=== PATIENT | male | born 1945 | race Two or more races ===

== ENCOUNTER 2019-11-13 13:43 | Emergency (ER) | payer OTHER ==
[~2019-11-13] VITALS: Ht 162.6 cm; Wt 74.4 kg
[2019-11-13] MEDS ORDERED: PROTONIX40 MG PO (13:49)
[2019-11-13] MEDS ORDERED: CHLORDIAZEPOXI1 EACH PO (13:50)
[2019-11-13] MEDS ORDERED: LIPITOR40 M1 PO (14:17)
[2019-11-13] MEDS ORDERED: GLIMEPIRIDE2 MG PO (14:17)
[2019-11-13] MEDS ORDERED: LOTREL 5-10 MG1 CAP PO (14:18)
== END 2019-11-13 16:21 | disposition home or self-care (01) ==
LOC: ER 13:43
DX: R10.814 Left lower quadrant abdominal tenderness (principal); Z03.818 Encounter for observation for suspected exposure to other biological agents ruled out

== ENCOUNTER 2019-11-20 09:08 | Day surgery (SDC) | payer OTHER | END 2019-11-20 16:40 | disposition home or self-care (01) | LOC: AMB-ENDOS 09:08 | DX: D13.1 Benign neoplasm of stomach (principal); K44.9 Diaphragmatic hernia without obstruction or gangrene ==

== ENCOUNTER 2020-08-26 10:54 | Day surgery (SDC) | payer OTHER ==
[~2020-08-26 10:54] MED LIST: CHLORDIAZEPOXI1 EACH PO; GLIMEPIRIDE2 MG PO; LIPITOR40 M1 PO; LOTREL 5-10 MG1 CAP PO; PROTONIX40 MG PO
== END 2020-08-26 14:55 | disposition home or self-care (01) ==
LOC: AMB-ENDOS 10:54
PROVIDERS: ATTEND Colon & Rectal Surgery
DX: K29.00 Acute gastritis without bleeding (principal); K44.9 Diaphragmatic hernia without obstruction or gangrene; Z20.822 Contact with and (suspected) exposure to COVID-19

== ENCOUNTER 2021-03-29 05:30 | Day surgery (SDC) | payer OTHER | END 2021-03-29 09:35 | disposition home or self-care (01) | LOC: AMB-ENDOS 05:30 | PROVIDERS: ATTEND Colon & Rectal Surgery | DX: D13.1 Benign neoplasm of stomach (principal); Z20.822 Contact with and (suspected) exposure to COVID-19 ==